=== PATIENT | male | born 1995 | race Caucasian/White ===

== ENCOUNTER 2019-07-03 21:47 | Emergency (ER) | payer SELFPAY ==
[~2019-07-03] VITALS: Ht 177.8 cm; Wt 86.2 kg
--- NOTE | 2019-07-03 21:50 | NUR ---
GERALDINE FROM REHAB. TO ER BED 11. AAOX4. NOT IN RESP DISTRESS, BREATHING EVEN AND UNLABORED. AMBULATORY. BROUGHT IN FOR POSSIBLE OVERDOSE. PT REPORTS THAT HE TOOK COCAINE AND STAFF AT REHAB FOUND HIM UNCONSCIOUS. PT WAS GIVEN NARCAN 2MG NASALLY AND PT AWOKEN. NOTED VOMITING X1 EPISODE. MD AT [facility]EDSID FOR EVAL. AWAITING FURTHER ORDERS.
[2019-07-03] MEDS ORDERED: IV NS 0.9% 1,000 ML BAG IV ONE ×2 (22:00→22:30)
[2019-07-03] MEDS ORDERED: ONDANSETRON HCL/PF - ER 4 MG/2 ML VIAL IV ONE (22:00)
[2019-07-03] MEDS ORDERED: ONDANSETRON HCL/PF 4 MG/2 ML VIAL ONE (22:08)
[2019-07-03 22:17] LABS: BASOPHILS # (AUTO) 0.1 /CMM (0.0-0.2); BASOPHILS % (AUTO) 0.8 % (0.0-2.0); EOSINOPHILS % (AUTO) 0.4 % (0.0-6.0); HEMATOCRIT 41 % (39-51); HEMOGLOBIN 13.5 g/dL (13.5-17.5); LYMPHOCYTES # (AUTO) 2.5 /CMM (0.8-4.8); LYMPHOCYTES % (AUTO) 23.9 % (20.0-44.0); MEAN CORPUSCULAR HGB CONC 33 g/dl (31.0-36.0); MEAN CORPUSCULAR VOLUME 86 fL (80-96); MONOCYTES # (AUTO) 0.6 /CMM (0.1-1.30); NEUTROPHILS # (AUTO) 7.1 /CMM (1.8-8.9); NEUTROPHILS % (AUTO) 68.9 % (43.0-81.0); PLATELET COUNT (AUTO) 311 /CMM (150-450); RED BLOOD CELL COUNT(AUTO) 4.71 MIL/uL (4.5-6.0); WHITE BLOOD COUNT (AUTO) 10.3 K/uL (4.3-11.0)
[2019-07-03 22:24] LABS: CARBON DIOXIDE 33 mmol/L (21-32); CHLORIDE 103 mmol/L (98-107); CREATININE 1.3 mg/dL (0.6-1.3); GLUCOSE 99 mg/dL (74-106); POTASSIUM 4.4 mmol/L (3.5-5.1); SODIUM SERUM 141 mmol/L (136-145); UREA NITROGEN, BLOOD 19 mg/dL (7-18)
[2019-07-03 22:30] LABS: ALANINE AMINOTRANSFERASE 52 U/L (12-78); ALBUMIN 4.1 g/dL (3.4-5.0); ALCOHOL, BLOOD < 3 mg/dL (0-0); ALKALINE PHOSPHATASE 84 U/L (46-116); ASPARTATE AMINOTRANSFERASE 28 U/L (15-37); BILIRUBIN,TOTAL 0.2 mg/dL (0.2-1.0); TOTAL PROTEIN, SERUM 7.4 g/dL (6.4-8.2)
--- NOTE | 2019-07-03 22:30 | NUR ---
RECEIVED CALL FROM [facility]. FACILITY STATES THEY WOULD LIKE TO KNOW WHEN PT GETS DISCHARGED SO THEY CAN PICK THE PT UP. DIRECT CONTACT:TORI
[2019-07-03 22:31] LABS: ACETAMINOPHEN 0 ug/ml (10-30); SALICYLATE 2.1 mg/dL (2.8-20.0)
[2019-07-03 23:19] LABS: APPEARANCE,URINE Clear (CLEAR); BILIRUBIN,URINE Negative (NEGATIVE); BLOOD, URINE Negative Ery/uL (NEGATIVE); COLOR,URINE Yellow (YELLOW); KETONES,URINE Negative (NEGATIVE); LEUKOCYTE ESTERASE ,URINE Negative (NEGATIVE); NITRITE, URINE Negative (NEGATIVE); PROTEIN,URINE Negative (NEGATIVE); UGLUCOSE Negative (NEGATIVE); UROBILINOGEN,URINE 0.2 EU/dL (0.2)
--- NOTE | 2019-07-04 00:33 | NUR ---
Patient discharged to home in stable condition. Written and verbal after care instructions given. Patient verbalizes understanding of instruction.IV removed. Catheter intact and site benign. Pressure and 4x4 applied to site. No bleeding noted. Pt ambulatory with a steady gait
[2019-07-04 00:34] VITALS: BP 123/66
== END 2019-07-04 00:36 | disposition home or self-care (01) ==
LOC: ER 21:48
DX: T40.5X1A Poisoning by cocaine, accidental (unintentional), initial encounter (principal); T40.4X1A Poisoning by other synthetic narcotics, accidental (unintentional), initial encounter; Y92.89 Other specified places as the place of occurrence of the external cause; I10 Essential (primary) hypertension
CPT/HCPCS: 36415; 80048; 80076; 80305; 80307; 80329; 81001; 85025; 93005; 96361; 96374; 99284; G0480; J2405; J7030; 81000-TC